=== PATIENT | male | born 1950 | race Two or more races ===

== ENCOUNTER 2017-05-17 09:19 | Outpatient (CLI) | payer MEDICARE ==
[2017-05-17 10:04] LABS: ADD MAN DIFF? NO
[2017-05-17 10:05] LABS: BASO # 0.1 x10^3/uL (0.0-0.2); BASO % 1 % (0-3); EOS # 0.5 x10^3/uL (0.0-0.7); EOS % 6 % (0-3); HEMATOCRIT 36.2 % (39.0-53.0); HEMOGLOBIN 11.6 g/dL (13.0-17.5); LYMPH % 22 % (24-48); MEAN CORPUSCULAR HEMOGLOBIN 29 pg (25-35); MEAN CORPUSCULAR HGB CONC 32 g/dL (31-37); MEAN CORPUSCULAR VOLUME 91 fL (79-100); MONO % 11 % (0-9); NEUT # 5.6 x10^3uL (1.8-7.7); NEUT % 61 % (31-73); PLATELET COUNT 235 x10^3/uL (140-400); RED CELL DISTRIBUTION WIDTH 16.5 % (11.5-14.5); WHITE BLOOD COUNT 9.2 x10^3/uL (4.0-11.0)
[2017-05-17 10:19] LABS: INR 1.3 (0.8-1.1); PROTHROMBIN TIME PATIENT 15.2 SEC (11.7-14.0)
[2017-05-17 10:21] LABS: ANION GAP 14 (6-14); BLOOD UREA NITROGEN 54 mg/dL (8-26); CALCIUM 8.3 mg/dL (8.5-10.1); CARBON DIOXIDE 29 mmol/L (21-32); CHLORIDE 103 mmol/L (98-107); CREATININE 7.6 mg/dL (0.7-1.3); GFR 7.2; GLUCOSE 159 mg/dL (70-99); POTASSIUM 4.6 mmol/L (3.5-5.1); SODIUM 146 mmol/L (136-145)
[2017-05-17] MEDS ORDERED: IODIXANOL 320 MG/ML 100 ML VIAL. (11:02)
[2017-05-17] MEDS ORDERED: LIDOCAINE WITH 8.4% SOD BICARB 3 ML DISP.SYRIN. IJ (11:03)
[2017-05-17] MEDS ORDERED: MIDAZOLAM HCL/PF 2 MG/2 ML VIAL. (11:04)
[2017-05-17] MEDS ORDERED: fentaNYL PF VIAL 100 MCG/2 ML VIAL (11:04)
[2017-05-17] MEDS ORDERED: VANCOMYCIN 1GM IVPB FOR OMNI 250 ML (11:14)
[2017-05-17] MEDS: IODIXANOL 320 MG/ML 100 ML VIAL. IART (11:47)
[2017-05-17] MEDS: MIDAZOLAM HCL/PF 2 MG/2 ML VIAL. IV (11:48)
[2017-05-17] MEDS: fentaNYL PF VIAL 100 MCG/2 ML VIAL IV (11:48)
[2017-05-17] MEDS: LIDOCAINE WITH 8.4% SOD BICARB 3 ML DISP.SYRIN. IJ (11:49)
[2017-05-17] MEDS: VANCOMYCIN 1GM IVPB FOR OMNI 250 ML IV (11:54)
[2017-05-17] MEDS ORDERED: CONTRAST GIVEN MC (12:00)
== END 2017-05-17 13:15 | disposition home or self-care (01) ==
LOC: INTRAD 09:19
DX: T82.898A Other specified complication of vascular prosthetic devices, implants and grafts, initial encounter (principal); Y84.8 Other medical procedures as the cause of abnormal reaction of the patient, or of later complication, without mention of misadventure at the time of the procedure; Y92.89 Other specified places as the place of occurrence of the external cause; Z99.2 Dependence on renal dialysis; Z79.01 Long term (current) use of anticoagulants; I10 Essential (primary) hypertension; E11.9 Type 2 diabetes mellitus without complications; F32.9 Major depressive disorder, single episode, unspecified; Z87.01 Personal history of pneumonia (recurrent); Z88.0 Allergy status to penicillin; Z88.8 Allergy status to other drugs, medicaments and biological substances
CPT/HCPCS: 36415; 36901; 76937; 80048; 85025; 85610; 99152; 99153; C1892; J1644; J2250; J3010; J3370